=== PATIENT | male | born 1980 | race Hispanic/Latino ===

== ENCOUNTER 2019-09-17 15:01 | Emergency (ER) | payer SELFPAY ==
[2019-09-17] MEDS ORDERED: ACETAMINOPHEN EXTRA STRENGTH 500 MG TABLET ONE (15:24)
[2019-09-17] MEDS ORDERED: LIDOCAINE HCL 1% 20 ML VIAL ONE (17:07)
== END 2019-09-17 18:23 | disposition home or self-care (01) ==
LOC: EDH 15:01
DX: S01.01XA Laceration without foreign body of scalp, initial encounter (principal); H53.8 Other visual disturbances; Z72.0 Tobacco use; W20.8XXA Other cause of strike by thrown, projected or falling object, initial encounter; Y93.89 Activity, other specified; Y92.89 Other specified places as the place of occurrence of the external cause; Y99.8 Other external cause status
CPT/HCPCS: 12002; 12014; 70450; 72125

== ENCOUNTER 2019-09-26 16:48 | Emergency (ER) | payer SELFPAY | END 2019-09-26 18:19 | disposition home or self-care (01) | LOC: EDH 16:48 | DX: S01.01XD Laceration without foreign body of scalp, subsequent encounter (principal); X58.XXXD Exposure to other specified factors, subsequent encounter | CPT/HCPCS: 99281 ==